=== PATIENT | female | born 1945 | race Caucasian/White ===

== ENCOUNTER 2017-05-07 19:04 | Emergency (ER) | payer OTHER ==
[2017-05-07 19:17] VITALS: BMI 26.5
--- NOTE | 2017-05-07 19:34 | DR.GENAD ---
HPI - Complaint/Symptoms Chief Complaint Doctors Comments: Family members brought patient to the ED for evaluation due to change in mental capacity. They report that her speech was different and could not understand her. She has no history of seizure or hypertension PMH - PMH Unable to Obtain Due To: Altered mental status - Family History Family Medical History: Diabetes Mellitus - Social History Does patient currently use any type of tobacco product: No ROS - Review of Systems Constitutional: negative: Diaphoresis Eyes: No Symptoms Reported ENTM: No Symptoms Reported Respiratoy: No Symptoms Reported Cardiovascular: No Symptoms Reported, Chest Pain Genitourinary: No Symptoms Reported Neurological: No Symptoms Reported Musculoskeletal: No Symptoms Reported Integumentary: No Symptoms Reported Hematologic/Lymphatic: No Symptoms Reported Endocrine: No Symptoms Reported Psychiatric: No Symptoms Reported All Other Systems: Reviewed and Negative PE - Vital Signs Vitals: Temperature 100.4 F Pulse Rate 111 Respiratory Rate 17 Blood Pressure 138/62 O2 Sat by Pulse Oximetry 100 - General General Appearance: Alert - Head Head Exam: Normal Inspection, Atraumatic - Eyes Eye exam: Normal Appearance, PERRL, EOMI - ENT ENT Exam: Normal Exam External Ear Exam: Normal External Inspection TM/Canal Exam: Bilateral Normal Nose Exam: Normal Nose Exam Mouth Exam: Normal Inspection Throat Exam: Normal Inspection - Neck Neck Exam: Normal Inspection - Chest Chest Inspection: Normal Inspection - Respiratory Respiratory Exam: Normal Lung Sounds Bilat Respiratory Exam: Bilateral Clear to Auscultation - Cardiovascular Cardiovascular Exam: Regular Rate, Normal Rhythm - Abdominal Exam Abdominal Exam: Normal Inspection, Normal Bowel Sounds Abdominal Tenderness: negative: RUQ, RLQ, LUQ, LLQ, Epigastrium, Suprapubic, Diffuse, Mild, Moderate, Severe, Other - Extremities Extremities Exam: Normal Inspection - Back Back Exam: Normal Inspection, Full ROM - Neurologic Neurological Exam: Alert, Oriented X3, CN II-XII Intact - Psychiatric Psychiatric Exam: Normal Affect - Skin Skin Exam: Warm, Dry, Intact Course - Education/Counseling Education/Counseling: Family, Education, Counseling Educated On: Treatment, Diagnosis, Needs for Follow Up ROR - Labs Reviewed Laboratory Results Reviewed?: Yes (H/H decreased) Result Diagrams: 05/07/17 19:45 05/07/17 19:45 Laboratory: WBC 11.0 X10^3/uL (3.6-10.0) H 05/07/17 19:45 RBC 3.89 X10^6/uL (3.5-5.4) 05/07/17 19:45 Hgb 10.9 g/dL (12.0-16.0) L 05/07/17 19:45 Hct 32.2 % (36.0-47.0) L 05/07/17 19:45 MCV 82.8 fL (80.0-100.0) 05/07/17 19:45 MCH 27.9 pg (27.0-34.0) 05/07/17 19:45 MCHC 33.7 g/dL (33.0-35.0) 05/07/17 19:45 RDW 13.8 % (11.6-16.5) 05/07/17 19:45 Plt Count 286 X10^3/uL (150.0-450.0) 05/07/17 19:45 Plt Count Comment Adequate (ADEQUATE) 05/07/17 19:45 MPV 7.0 fL (7.4-11.0) L 05/07/17 19:45 Neut % 94.4 % (42.0-75.0) H 05/07/17 19:45 Lymph % 3.8 % (21.0-51.0) L 05/07/17 19:45 [place] % 1.5 % (0.0-13.0) 05/07/17 19:45 Eos % 0.1 % (0.9-2.9) L 05/07/17 19:45 Baso % 0.2 % (0.2-1.0) 05/07/17 19:45 Neut # 10.4 x10^3/uL (2.2-4.8) H 05/07/17 19:45 Lymph # 0.4 X10^3/uL (1.3-2.9) L 05/07/17 19:45 [place] # 0.2 x10^3/uL (0.3-0.8) L 05/07/17 19:45 Eos # 0.0 x10^3/uL (0.0-0.2) 05/07/17 19:45 Baso # 0.0 X10^3/uL (0.0-0.1) 05/07/17 19:45 Absolute Nucleated RBC 0.0 /100WBC 05/07/17 19:45 Total Counted 100 05/07/17 19:45 Neutrophils % (Manual) 92 % (39-76) H 05/07/17 19:45 Band Neutrophils % 3 % (0-10) 05/07/17 19:45 Lymphocytes % (Manual) 3 % (13-43) L 05/07/17 19:45 Monocytes % (Manual) 2 % (4-9) L 05/07/17 19:45 Plt Morphology Comment Normal (NORMAL) 05/07/17 19:45 RBC Morphology Normal (NORMAL) 05/07/17 19:45 Sodium 136 mmol/L (136-145) 05/07/17 19:45 Corrected Sodium 138 mmol/L (136-145) 05/07/17 19:45 Potassium 3.9 mmol/L (3.5-5.1) 05/07/17 19:45 Chloride 103 mmol/L (98-107) 05/07/17 19:45 Carbon Dioxide 23.9 mmol/L (21-32) 05/07/17 19:45 BUN 15 mg/dL (7-18) 05/07/17 19:45 Creatinine 1.04 mg/dL (0.55-1.02) H 05/07/17 19:45 Est GFR (MDRD) Af Amer > 60 (>60) 05/07/17 19:45 Est GFR (MDRD) Non-Af 55 (>60) L 05/07/17 19:45 Glucose 167 mg/dL (65-99) H 05/07/17 19:45 Calcium 8.2 mg/dL (8.5-10.1) L 05/07/17 19:45 Corrected Calcium 9.1 mg/dL (8.5-10.1) 05/07/17 19:45 Total Bilirubin 0.30 mg/dL (0.2-1.0) 05/07/17 19:45 AST 20 Units/L (15-37) 05/07/17 19:45 ALT 14 Units/L (12-78) 05/07/17 19:45 Alkaline Phosphatase 62 Units/L (46-116) 05/07/17 19:45 C-Reactive Protein 56.20 mg/L (0-3.0) H 05/07/17 19:45 Total Protein 6.8 g/dL (6.4-8.2) 05/07/17 19:45 Albumin 2.9 g/dL (3.4-5.0) L 05/07/17 19:45 Globulin 3.9 g/dL (2.5-4.5) 05/07/17 19:45 Albumin/Globulin Ratio 0.7 Ratio (1.1-2.1) L 05/07/17 19:45 Specimen Type Catherized urine 05/07/17 19:50 Urine Color Yellow (YELLOW) 05/07/17 19:50 Urine Appearance Slightly hazy (CLEAR) 05/07/17 19:50 Urine pH 5.0 (5.0 - 8.0) 05/07/17 19:50 Ur Specific [place] 1.010 (1.000-1.030) 05/07/17 19:50 Urine Protein 1+ (NEGATIVE) 05/07/17 19:50 Urine Glucose (UA) Negative (NEGATIVE) 05/07/17 19:50 Urine Ketones 1+ (NEGATIVE) 05/07/17 19:50 Urine Occult Blood 1+ (NEGATIVE) 05/07/17 19:50 Urine Nitrite Negative (NEGATIVE) 05/07/17 19:50 Urine Bilirubin Negative (NEGATIVE) 05/07/17 19:50 Urine Urobilinogen 1+ (NORMAL) 05/07/17 19:50 Ur Leukocyte Esterase 1+ (NEGATIVE) 05/07/17 19:50 Urine RBC 0 - 2 /HPF (NEGATIVE) 05/07/17 19:50 Urine WBC Rare /HPF (NEGATIVE) 05/07/17 19:50 Ur Squamous Epith Cells Few /HPF (NEGATIVE) 05/07/17 19:50 Amorphous Sediment 1+ /HPF (NEGATIVE) 05/07/17 19:50 Urine Bacteria Negative /HPF (NEGATIVE) 05/07/17 19:50 Urine Mucus Moderate /HPF (NEGATIVE) 05/07/17 19:50 Ur Culture Indicated? No/not indicated 05/07/17 19:50 - XRAY XRAY Interpreted by: Radiologist (Brain CT: No acute intracranial process) - Diagnosis Discharge Problem: Dementia Qualifiers: Dementia type: unspecified type Dementia behavioral disturbance: without behavioral disturbance Qualified Code(s): F03.90 - Unspecified dementia without behavioral disturbance Anemia Qualifiers: Anemia type: iron deficiency Iron deficiency anemia type: unspecified iron deficiency Qualified Code(s): D50.9 - Iron deficiency anemia, unspecified - Discharge Plan Condition: Stable - Follow ups/Referrals Follow ups/Referrals: IVÁN SALOMON [Primary Care Provider] - 3 days - Instructions
--- NOTE | 2017-05-07 19:46 | CT ---
HISTORY: Altered mental status. Confusion. Study: CT brain without contrast. Comparison: None. Technique: Multiple axial images of the brain were obtained from the skull base to the vertex without administra tion of IV contrast. Findings: Optimal evaluation is limited secondary to patient positioning. No acute intraparenchymal hemorrhage or mass can be identified. No extra-axial fluid collections are seen. No alteration in the attenuat ion of the brain parenchyma can be identified to suggest acute or subacute ischemic change. The vent ricular system is symmetric and nondilated. The extracranial structures are grossly unremarkable. IMPRESSION: No acute intracranial process can be identified. Reported By:
[2017-05-07 19:54] LABS: BASOPHILS % (AUTO) 0.2 % (0.2-1.0); EOSINOPHILS % (AUTO) 0.1 % (0.9-2.9); HEMATOCRIT 32.2 % (36.0-47.0); HEMOGLOBIN 10.9 g/dL (12.0-16.0); LYMPHOCYTES # (AUTO) 0.4 X10^3/uL (1.3-2.9); LYMPHOCYTES % (AUTO) 3.8 % (21.0-51.0); MEAN CORPUSCULAR HEMOGLOBIN 27.9 pg (27.0-34.0); MEAN CORPUSCULAR HGB CONC 33.7 g/dL (33.0-35.0); MEAN CORPUSCULAR VOLUME 82.8 fL (80.0-100.0); MONOCYTES # (AUTO) 0.2 x10^3/uL (0.3-0.8); MONOCYTES % (AUTO) 1.5 % (0.0-13.0); NEUTROPHILS # (AUTO) 10.4 x10^3/uL (2.2-4.8); NEUTROPHILS % (AUTO) 94.4 % (42.0-75.0); PLATELET COUNT 286 X10^3/uL (150.0-450.0); RED BLOOD COUNT 3.89 X10^6/uL (3.5-5.4); RED CELL DISTRIBUTION WIDTH 13.8 % (11.6-16.5)
[2017-05-07 20:01] LABS: BILIRUBIN,URINE NEGATIVE (NEGATIVE); BLOOD/HEMOGLOBIN,URINE 1+ (NEGATIVE); GLUCOSE, URINE NEGATIVE (NEGATIVE); KETONES,URINE 1+ (NEGATIVE); LEUKOCYTE ESTERASE ,URINE 1+ (NEGATIVE); NITRITES,URINE NEGATIVE (NEGATIVE); PROTEIN,URINE 1+ (NEGATIVE); UROBILINOGEN,URINE 1+ (NORMAL)
[2017-05-07 20:05] LABS: APPEARANCE,URINE SLIGHTLY HAZY (CLEAR); COLOR,URINE YELLOW (YELLOW)
[2017-05-07 20:06] LABS: ALANINE AMINOTRANSFERASE 14 Units/L (12-78); ALBUMIN 2.9 g/dL (3.4-5.0); ALKALINE PHOSPHATASE 62 Units/L (46-116); ASPARTATE AMINO TRANSFERASE 20 Units/L (15-37); BLOOD UREA NITROGEN 15 mg/dL (7-18); CALCIUM 8.2 mg/dL (8.5-10.1); CARBON DIOXIDE 23.9 mmol/L (21-32); CHLORIDE 103 mmol/L (98-107); COR CA(FOR HYPOALB) 9.1 mg/dL (8.5-10.1); COR NA(FOR HYPERGLY) 138 mmol/L (136-145); CREATININE 1.04 mg/dL (0.55-1.02); SODIUM 136 mmol/L (136-145); TOTAL PROTEIN 6.8 g/dL (6.4-8.2); eGFR BLACK RACES > 60 (>60); eGFR NON BLACK RACES 55 (>60)
[2017-05-07 20:11] LABS: BAND NEUTROPHILS % 3 % (0-10); PLATELET MORPHOLOGY COMMENT NORMAL (NORMAL)
[2017-05-07 20:20] LABS: BACTERIA,URINE NEGATIVE /HPF (NEGATIVE); RBC,URINE 0 - 2 /HPF (NEGATIVE); SQUAMOUS EPITHELIAL CELL,UR FEW /HPF (NEGATIVE)
[2017-05-07 20:21] LABS: AMORPHOUS SEDIMENT,UR 1+ /HPF (NEGATIVE); MUCUS,URINE MODERATE /HPF (NEGATIVE)
[2017-05-07] MEDS ORDERED: GEODON INJ IM ONE (21:33)
[2017-05-07] MEDS ORDERED: GEODON INJ IM NR ×2 (21:42→22:00)
[2017-05-08 01:06] VITALS: BP 114/56
== END 2017-05-08 01:15 ==
LOC: ER 19:04
DX: F03.90 Unspecified dementia, unspecified severity, without behavioral disturbance, psychotic disturbance, mood disturbance, and anxiety (principal); D50.8 Other iron deficiency anemias
CPT/HCPCS: 36415; 70450; 80053; 81001; 85025; 86140; 96372; 99284; 99285; J3486